=== PATIENT | female | born 1995 | race Caucasian/White ===

== ENCOUNTER → 2020-11-06 | Outpatient (CLI) | payer OTHER ==
[~2020-11-06] MED LIST: BUPROPION XL150 MG PO; DOCUSATE SODIU100 MG PO; FERROUS SULFAT325 MG PO; HYDROCODON-ACE1 EAC4 PO; IBUPROFEN600 MG PO; IRON325 M1 PO; PRENATABS FA T1 EACH PO; PRENATAL TABLE1 EAC1 PO; PRILOSEC OTC20 MG PO; RANITIDINE HCL150 M1 PO
== END ==
LOC: GENOP 00:16
DX: O36.8130 Decreased fetal movements, third trimester, not applicable or unspecified (principal); O99.891 Other specified diseases and conditions complicating pregnancy; R10.2 Pelvic and perineal pain; Z3A.37 37 weeks gestation of pregnancy
CPT/HCPCS: 93005; G0463

== ENCOUNTER 2020-11-15 05:35 | Inpatient (IN) | payer OTHER ==
[~2020-11-15] VITALS: Ht 154.9 cm; Wt 133.4 kg
[~2020-11-15 05:35] MED LIST changes: -BUPROPION XL150 MG PO; -DOCUSATE SODIU100 MG PO; -FERROUS SULFAT325 MG PO; -HYDROCODON-ACE1 EAC4 PO; -IBUPROFEN600 MG PO; -PRENATABS FA T1 EACH PO; -PRILOSEC OTC20 MG PO
[2020-11-15] MEDS ORDERED: BUPROPION XL150 MG PO (06:31)
[2020-11-15] MEDS ORDERED: PRENATABS FA T1 EACH PO (06:32)
[2020-11-15] MEDS ORDERED: PRILOSEC OTC20 MG PO (06:32)
[2020-11-15] MEDS ORDERED: FERROUS SULFAT325 MG PO (06:33)
[2020-11-15 06:35] LABS: RED BLOOD COUNT 4.55 M/UL (4.00-5.10); WHITE BLOOD COUNT 9.3 K/UL (4.5-11.0)
[2020-11-16 06:49] LABS: HEMOGLOBIN 10.3 gm/dl (12.3-15.3)
[2020-11-16] MEDS ORDERED: IBUPROFEN600 MG PO (09:23)
[2020-11-16] MEDS ORDERED: DOCUSATE SODIU100 MG PO (09:23)
[2020-11-16] MEDS ORDERED: HYDROCODON-ACE1 EAC4 PO (09:23)
== END 2020-11-16 12:26 | disposition home or self-care (01) | DRG 786 ==
LOC: OB 05:35
PROVIDERS: ADMIT Obstetrics & Gynecology
PROC: 3E0234Z Introduction of Serum, Toxoid and Vaccine into Muscle, Percutaneous Approach (ICD-10-PCS; 2020-11-15)
PROC: 10D00Z1 Extraction of Products of Conception, Low, Open Approach (ICD-10-PCS; principal; 2020-11-15 07:51)
DX: O34.211 Maternal care for low transverse scar from previous cesarean delivery (principal); U07.1 COVID-19; O98.52 Other viral diseases complicating childbirth; O99.214 Obesity complicating childbirth; E66.01 Morbid (severe) obesity due to excess calories; N85.8 Other specified noninflammatory disorders of uterus; Z3A.39 39 weeks gestation of pregnancy; Z37.0 Single live birth; Z90.49 Acquired absence of other specified parts of digestive tract; Z23 Encounter for immunization
CPT/HCPCS: 36415; 81001; 82800; 85014; 85018; 85025; 90471; 90472; 90715; C9113; J0690; J1650; J1885; J2210; J2274; J2405; J2550; J2590; J3010; J7120

== ENCOUNTER 2021-07-29 02:27 | Emergency (ER) | payer OTHER ==
[~2021-07-29 02:27] MED LIST changes: +BUPROPION XL150 MG PO; +DOCUSATE SODIU100 MG PO; +FERROUS SULFAT325 MG PO; +HYDROCODON-ACE1 EAC4 PO; +IBUPROFEN600 MG PO; +PRENATABS FA T1 EACH PO; +PRILOSEC OTC20 MG PO
[2021-07-29 03:44] LABS: HEMOGLOBIN 11.9 gm/dl (12.3-15.3); RED BLOOD COUNT 4.32 M/UL (4.00-5.10); WHITE BLOOD COUNT 9.1 K/UL (4.5-11.0)
[2021-07-29 04:06] LABS: BUN/CREATININE RATIO 28 (0-10)
[2021-07-29] MEDS ORDERED: BENTYL 20MG TAB20 MG PO (05:47)
[2021-07-29] MEDS ORDERED: ZOFRAN ODT 4 MG4 MG PO (05:47)
[2021-07-29] MEDS ORDERED: LODINE CAP 300300 MG PO (05:47)
== END 2021-07-29 06:06 | disposition home or self-care (01) ==
LOC: ER1 02:27
PROVIDERS: Physician Assistant
DX: I88.0 Nonspecific mesenteric lymphadenitis (principal); Z90.49 Acquired absence of other specified parts of digestive tract; Z90.89 Acquired absence of other organs; Z88.2 Allergy status to sulfonamides; Z88.0 Allergy status to penicillin
CPT/HCPCS: 80053; 81001; 83605; 83690; 84703; 85025; 87086; 96374; 96375; 99284; J1885; J2405; J7030; Q9967